=== PATIENT | male | born 1950 | race Hispanic/Latino ===

== ENCOUNTER 2019-09-23 14:01 | Emergency (ER) | payer OTHER ==
--- NOTE | 2019-09-23 15:08 | ER ---
Nurse's Notes [facility] Name: Antoine Madrid Age: 69 yrs Sex: Male : 1950 Arrival Date: 09/23/2019 Time: 14:04 Bed 5 Private MD: Diagnosis: Insect bite (nonvenomous) of right hand Presentation: 09/22 14:21 Chief complaint: Patient states: Possible insect bite to right hand 5th digit and right ll1 side of abdomen for 4 days. Finger drains small amount of pus. Finger is red, swollen. No fever at home. Coronavirus screen: Proceed with normal triage. Patient denies a cough. Patient denies shortness of breath or difficulty breathing. Patient denies measured and/or subjective temperature greater than 100.4F prior to today's visit. Patient denies travel on a cruise ship or to a country the [facility] currently lists as an affected area. Patient denies contact with known and/or suspected case of COVID-19. Initial Sepsis Screen: Does the patient meet any 2 criteria? No. Patient's initial sepsis screen is negative. Risk Assessment: Do you want to hurt yourself or someone else? Patient reports no desire to harm self or others. Onset of symptoms was September 19, 2019. 14:21 Method Of Arrival: Ambulatory 1 14:21 Acuity: JUSTINA 4 ll1 14:48 Ebola Screen: Patient denies travel to an Ebola-affected area in the 21 days before ll1 illness onset. 15:00 Initial Sepsis Screen: Does the patient have a suspected source of infection? Yes: Skin ph breakdown/wound. Historical: - Allergies: 14:23 No Known Allergies; ll1 - PMHx: 14:23 Hypertension; ll1 - PSHx: 14:23 heart surgery; ll1 - Social history:: Smoking status: Patient reports the use of cigarette tobacco products, smokes one pack cigarettes per day. Patient/guardian denies using alcohol, street drugs. Screenin:20 Abuse screen: Denies threats or abuse. Denies injuries from another. Nutritional ph screening: No deficits noted. Nutritional screening: No deficits noted. Tuberculosis screening: No symptoms or risk factors identified. Fall Risk None identified. Assessment: 15:16 General: Appears in no apparent distress. comfortable, Behavior is calm, cooperative, ph appropriate for age. Pain: Complains of pain in dorsal aspect of proximal phalanx of right little finger. Neuro: Level of Consciousness is awake, alert, obeys commands, Oriented to person, place, time, situation. Cardiovascular: Capillary refill < 3 seconds in bilateral fingers Patient's skin is warm and dry. Respiratory: Airway is patent Respiratory effort is even, unlabored, Respiratory pattern is regular, symmetrical. Derm: Skin is healthy with good turgor, Skin is pink, warm \T\ dry. Derm: Musculoskeletal: Circulation, motion, and sensation intact. Range of motion: intact in all extremities. Musculoskeletal: Swelling present in dorsal aspect of proximal phalanx of right little finger. 15:53 Reassessment: Patient appears in no apparent distress at this time. Patient and/or ph family updated on plan of care and expected duration. Pain level reassessed. Patient is alert, oriented x 3, equal unlabored respirations, skin warm/dry/pink. Pt d/c home. Vital Signs: 14:21 BP 131 / 84; Pulse 82; Resp 18; Temp 98.6; Pulse Ox 97% ; Pain 6/10; ll1 ED Course: 14:04 Patient arrived in ED. as 14:16 Kevin Harden NP is PHCP. pm1 14:16 Too Cross MD is Attending Physician. pm1 14:22 Triage completed. ll1 14:23 Arm band placed on Patient placed in an exam room, on a stretcher. ll1 15:00 Dahlia Herring RN is Primary Nurse. ph 15:21 Patient has correct armband on for positive identification. Bed in low position. Call ph light in reach. 15:55 No provider procedures requiring assistance completed. Patient did not have IV access ph during this emergency room visit. Administered Medications: 15:10 Drug: Tetanus-Diphtheria Toxoid Adult 0.5 ml {Payroll And Benefits Assistant: [employer]. Exp: ph 06/01/2021. Lot #: [id number]. } Route: IM; Site: right deltoid; 15:56 Follow up: Response: No adverse reaction ph 15:25 Drug: Flint 5 mg-325 mg 1 tabs Route: PO; ph 15:56 Follow up: Response: No adverse reaction ph 15:35 Drug: Clindamycin 600 mg Route: IM; Site: left vastus lateralis; ph 15:56 Follow up: Response: No adverse reaction ph Outcome: 15:08 Discharge ordered by . pm1 15:56 Discharged to home ambulatory. ph 15:56 Condition: good 15:56 Discharge instructions given to patient, Instructed on discharge instructions, follow up and referral plans. medication usage, Demonstrated understanding of instructions, follow-up care, medications, Prescriptions given X 3. 15:56 Patient left the ED. ph Signatures: Jessica Crowell Patricia, RN RN Kevin Harden NP SPLICER MACHINE OPERATOR pm1 Jane Barrios RN RN ll1
--- NOTE | 2019-09-23 15:09 | EDPHYS ---
Physician Documentation [facility] Name: Antoine Madrid Age: 69 yrs Sex: Male : 1950 Arrival Date: 09/23/2019 Time: 14:04 Bed 5 Private MD: ED Physician Too Cross HPI: 09/22 15:06 This 69 yrs old Male presents to ER via Ambulatory with complaints of Insect pm1 Bite, Hand Swelling. 15:06 The patient or guardian reports pain, swelling. The complaints affect the right hand pm1 and dorsal aspect of proximal phalanx of right little finger. Context: The problem was sustained at home, resulted from insect bite. Onset: The symptoms/episode began/occurred 2 day(s) ago. Modifying factors: The symptoms are alleviated by expressing wound, the symptoms are aggravated by palpation and expressing wound. Associated signs and symptoms: Pertinent negatives: cyanosis distally, decreased sensation distally, fever, numbness distally, tingling distally. Severity of symptoms: in the emergency department the symptoms are actually worse. The patient has not experienced similar symptoms in the past. Patient was working on his floors and then he felt a insect bite to his right 5 th finger and to right abdominal area. He poked at the bite on his finger and noted some drainage from it. Historical: - Allergies: 14:23 No Known Allergies; ll1 - PMHx: 14:23 Hypertension; ll1 - PSHx: 14:23 heart surgery; ll1 - Social history:: Smoking status: Patient reports the use of cigarette tobacco products, smokes one pack cigarettes per day. Patient/guardian denies using alcohol, street drugs. ROS: 15:06 Constitutional: Negative for fever, chills, and weight loss, Cardiovascular: Negative pm1 for chest pain, palpitations, and edema, Respiratory: Negative for shortness of breath, cough, wheezing, and pleuritic chest pain, Abdomen/GI: Negative for abdominal pain, nausea, vomiting, diarrhea, and constipation, Back: Negative for injury and pain. 15:06 Neuro: Negative for headache, weakness, numbness, tingling, and seizure. 15:06 MS/extremity: Positive for pain, swelling, of the dorsal aspect of proximal phalanx of right little finger, Negative for decreased range of motion, deformity. 15:06 Skin: Positive for swelling, of the dorsal aspect of proximal phalanx of right little finger. Exam: 15:06 Constitutional: This is a well developed, well nourished patient who is awake, alert, pm1 and in no acute distress. Head/Face: Normocephalic, atraumatic. 15:06 Cardiovascular: Exam negative for acute changes, Rate: normal, Rhythm: regular, Pulses: no pulse deficits are appreciated. 15:06 Respiratory: Exam negative for acute changes, respiratory distress, shortness of breath. 15:06 Musculoskeletal/extremity: Extremities: grossly normal except: noted in the dorsal aspect of proximal phalanx of right little finger: swelling, tenderness. 15:06 Skin: Appearance: normal except for affected area, abscess, that is small, approximately 0.5 cm(s), of the dorsal aspect of proximal phalanx of right little finger, central scab with induration. no surrounding cellulitis or fluctuance. Vital Signs: 14:21 BP 131 / 84; Pulse 82; Resp 18; Temp 98.6; Pulse Ox 97% ; Pain 6/10; ll1 Procedures: 15:36 I \T\ D: Incision and drainage was performed for an abscess of the dorsal aspect of pm1 proximal phalanx of right little finger Prepped with Betadine, Incised with central scab deroofed with 18 gauge needle. No purulent drainage present but some small loculations present. Removed with tweezers. Drained no drainage present Loculations removed. Abscess cavity explored. Dressing: sterile 4x4 gauze, the patient tolerated the procedure well. MDM: 14:16 Patient medically screened. pm1 14:27 Data reviewed: vital signs. Data interpreted: Pulse oximetry: on room air is 97 %. pm1 Interpretation: normal. 15:06 Counseling: I had a detailed discussion with the patient and/or guardian regarding: the pm1 historical points, exam findings, and any diagnostic results supporting the discharge/admit diagnosis, the need for outpatient follow up, to return to the emergency department if symptoms worsen or persist or if there are any questions or concerns that arise at home. Administered Medications: 15:10 Drug: Tetanus-Diphtheria Toxoid Adult 0.5 ml {Transit Mix Operator: [email or web address]. Exp: ph 06/01/2021. Lot #: [id number]. } Route: IM; Site: right deltoid; 15:56 Follow up: Response: No adverse reaction ph 15:25 Drug: [place] 5 mg-325 mg 1 tabs Route: PO; ph 15:56 Follow up: Response: No adverse reaction ph 15:35 Drug: Clindamycin 600 mg Route: IM; Site: left vastus lateralis; ph 15:56 Follow up: Response: No adverse reaction ph Disposition: 17:40 Co-signature as Attending Physician, Too Cross MD. rn Disposition: 09/23/19 15:08 Discharged to Home. Impression: Insect bite (nonvenomous) of right hand. - Condition is Stable. - Discharge Instructions: Insect Bite, Cellulitis, Adult. - Prescriptions for Tylenol- Codeine #3 300-30 mg Oral Tablet - take 2 tablets by ORAL route every 6 hours As needed; 20 tablet. Bactrim DS 800- 160 mg Oral Tablet - take 1 tablet by ORAL route every 12 hours for 10 days; 20 tablet. Keflex 500 mg Oral Capsule - take 1 capsule by ORAL route every 6 hours for 10 days; 40 capsule. - Medication Reconciliation Form, Thank You Letter, Antibiotic Education, Prescription Opioid Use form. - Follow up: Emergency Department; When: As needed; Reason: Worsening of condition. Follow up: Private Physician; When: 2 - 3 days; Reason: Recheck today's complaints, Continuance of care, Re-evaluation by your physician. - Problem is new. - Symptoms have improved. Signatures: Too Cross MD MD rn Hall, Patricia, RN RN ph Kevin Harden, THAD VISUAL STYLIST pm1 Jane Barrios RN RN ll1 Corrections: (The following items were deleted from the chart) 15:09 15:08 09/23/2019 15:08 Discharged to Home. Impression: Cellulitis of right finger. pm1 Condition is Stable. Forms are Medication Reconciliation Form, Thank You Letter, Antibiotic Education, Prescription Opioid Use. Follow up: Emergency Department; When: As needed; Reason: Worsening of condition. Follow up: Private Physician; When: 2 - 3 days; Reason: Recheck today's complaints, Continuance of care, Re-evaluation by your physician. Problem is new. Symptoms have improved. pm1 15:56 15:09 09/23/2019 15:08 Discharged to Home. Impression: Insect bite (nonvenomous) of ph right hand. Condition is Stable. Discharge Instructions: Cellulitis, Adult, Insect Bite. Prescriptions for Tylenol-Codeine #3 300-30 mg Oral Tablet - take 2 tablets by ORAL route every 6 hours As needed; 20 tablet, Bactrim DS 800-160 mg Oral Tablet - take 1 tablet by ORAL route every 12 hours for 10 days; 20 tablet. and Forms are Medication Reconciliation Form, Thank You Letter, Antibiotic Education, Prescription Opioid Use. Follow up: Emergency Department; When: As needed; Reason: Worsening of condition. Follow up: Private Physician; When: 2 - 3 days; Reason: Recheck today's complaints, Continuance of care, Re-evaluation by your physician. Problem is new. Symptoms have improved. pm1
[2019-09-23] MEDS ORDERED: TETANUS & DIPHTHERIA TOX,ADULT 0.5 ML VIAL ONE (15:15)
[2019-09-23] MEDS ORDERED: HYDROCODONE/APAP 5/325 MG TAB ONE (15:20)
[2019-09-23] MEDS ORDERED: CLINDAMYCIN IV 150 MG/ML (4 mL) VIAL ONE (15:37)
[2019-09-23 16:04] VITALS: BP 131/84; TEMP 98.6; O2SAT 97
== END 2019-09-23 15:56 | disposition home or self-care (01) ==
LOC: ER 14:01
PROC: 0H9FXZZ Drainage of Right Hand Skin, External Approach (ICD-10-PCS; principal; 2019-09-23)
DX: L02.511 Cutaneous abscess of right hand (principal); I10 Essential (primary) hypertension; F17.210 Nicotine dependence, cigarettes, uncomplicated; Z23 Encounter for immunization
CPT/HCPCS: 90471; 90714; 96372; 99283; 26010; S0077